=== PATIENT | female | born 1995 | race Asian ===

== ENCOUNTER 2020-04-11 13:42 | Emergency (ER) | payer OTHER ==
[~2020-04-11] VITALS: Ht 152.4 cm; Wt 57.0 kg
[2020-04-11 13:46] VITALS: BP 97/61
--- NOTE | 2020-04-11 14:30 | NUR ---
ua sent to radiology
[2020-04-11 14:56] LABS: HCG UR SG 1.017 (1.003-1.030); MICROSCOPIC INDICATED
--- NOTE | 2020-04-11 16:59 | NUR ---
Patient/Caregiver given discharge instructions and they have confirmed that they understand the instructions. Patient ambulatory with steady gait.
== END 2020-04-11 17:23 | disposition home or self-care (01) ==
LOC: ED 15:30
DX: S16.1XXA Strain of muscle, fascia and tendon at neck level, initial encounter (principal); S40.012A Contusion of left shoulder, initial encounter; N30.00 Acute cystitis without hematuria; V49.09XA Driver injured in collision with other motor vehicles in nontraffic accident, initial encounter; Y93.89 Activity, other specified; Y92.488 Other paved roadways as the place of occurrence of the external cause; Y99.8 Other external cause status
CPT/HCPCS: 72110; 72125; 81001; 81025; 87077; 87086; 87147; 87186; 99284; 99285